=== PATIENT | male | born 1940 | race Caucasian/White ===

== ENCOUNTER → 2018-05-22 | Outpatient (CLI) | payer OTHER | END | disposition home or self-care (01) | LOC: OIH 10:25 | PROVIDERS: ATTEND Family Medicine | DX: M47.896 Other spondylosis, lumbar region (principal); M48.061 Spinal stenosis, lumbar region without neurogenic claudication; I70.0 Atherosclerosis of aorta | CPT/HCPCS: 72100 ==

== ENCOUNTER → 2018-07-13 | Outpatient (CLI) | payer OTHER | END | disposition home or self-care (01) | LOC: RAH 14:30 | PROVIDERS: ATTEND Family Medicine | DX: M47.27 Other spondylosis with radiculopathy, lumbosacral region (principal); M48.061 Spinal stenosis, lumbar region without neurogenic claudication; M51.16 Intervertebral disc disorders with radiculopathy, lumbar region | CPT/HCPCS: 72148 ==

== ENCOUNTER → 2021-12-24 | Outpatient (CLI) | payer OTHER ==
[2021-12-24 12:56] LABS: THYROID STIMULATING HORMONE 1.49 uIU/mL (0.36-3.74)
[2021-12-24 13:34] LABS: T4 (THYROXINE) 8.8 ug/dL (4.7-13.3)
== END | disposition home or self-care (01) ==
LOC: LAB 09:24
PROVIDERS: ATTEND Internal Medicine Cardiovascular Disease
DX: I25.10 Atherosclerotic heart disease of native coronary artery without angina pectoris (principal); I10 Essential (primary) hypertension; Z79.899 Other long term (current) drug therapy
CPT/HCPCS: 36415; 82533; 82607; 82746; 84436; 84443; 86592

== ENCOUNTER → 2023-04-17 | Outpatient (CLI) | payer OTHER ==
[~2023-04-17] MED LIST: REGADENOSON 0.4 MG/5 ML PF SYG IVP ONE
== END | disposition home or self-care (01) ==
LOC: SHCH 08:39
PROVIDERS: ATTEND Internal Medicine Cardiovascular Disease
DX: I25.10 Atherosclerotic heart disease of native coronary artery without angina pectoris (principal)
CPT/HCPCS: 78452; 96374; 93017; J2785; A9500 ×2

== ENCOUNTER 2023-05-30 08:03 | Day surgery (SDC) | payer OTHER ==
[2023-05-26 10:24] VITALS: BP 153/84; PULSE 65; RESP 16
[2023-05-26 10:48] LABS: BASOPHILS # (AUTO) 0.04 K/uL (0.00-0.20); BASOPHILS % (AUTO) 0.4 % (0.0-5.0); EOSINOPHILS # (AUTO) 0.14 K/uL (0.00-0.70); EOSINOPHILS % (AUTO) 1.5 % (0.0-8.0); HEMATOCRIT 46.8 % (42-54); IMMATURE GRANULOCYTE ABSOLUTE 0.02 K/uL (0-1); LYMPHOCYTES # (AUTO) 3.1 K/uL (1.0-4.8); LYMPHOCYTES % (AUTO) 33.7 % (21.0-51.0); MEAN CORPUSCULAR HEMOGLOBIN 32.6 pg (27.0-33.0); MEAN CORPUSCULAR VOLUME 95.9 fL (79-99); MONOCYTES # (AUTO) 0.7 K/uL (0.1-1.0); NEUTROPHILS # (AUTO) 5.1 K/uL (1.8-7.7); NEUTROPHILS % (AUTO) 56.2 % (40.0-77.0); PLATELET COUNT (AUTO) 173 K/uL (130-400); RED BLOOD CELL COUNT(AUTO) 4.88 MIL/uL (4.50-6.20); RED CELL DISTRIBUTION WIDTH 13.5 % (11.0-15.5); WHITE BLOOD COUNT (AUTO) 9.1 K/uL (4.8-10.8)
[2023-05-26 10:52] LABS: CREATININE 0.9 mg/dL (0.5-1.5); POTASSIUM 4.2 mmol/L (3.5-5.1)
[2023-05-26 10:53] LABS: INR 0.98 (0.85-1.15); PROTHROMBIN TIME 11.4 SEC (9.6-11.6)
[2023-05-26 10:55] LABS: PARTIAL THROMBOPLASTIN TIME 32.2 SEC (26.3-35.5)
[2023-05-26 10:59] LABS: APPEARANCE,URINE CLEAR (CLEAR); BILIRUBIN,URINE NEGATIVE (NEGATIVE); COLOR,URINE YELLOW (YELLOW); GLUCOSE, URINE (UA) NEGATIVE (NEGATIVE); KETONES,URINE NEGATIVE (NEGATIVE); LEUKOCYTE ESTERASE ,URINE NEGATIVE Leu/uL (NEGATIVE); NITRATE,URINE NEGATIVE (NEGATIVE); OCCULT BLOOD,URINE NEGATIVE (NEGATIVE); PROTEIN,URINE NEGATIVE (NEGATIVE); UROBILINOGEN,URINE 0.2 mg/dL (0.2-1.0)
[2023-05-26 11:08] LABS: ADD UA MICROSCOPIC NO
[2023-05-26 11:22] LABS: B-TYPE NATRIURETIC PEPTIDE 49 pg/mL (0-100)
[~2023-05-30] VITALS: Ht 182.9 cm; Wt 78.6 kg
[2023-05-30] VITALS (10 sets, daily range): BP systolic 102–135; BP diastolic 46–76; PULSE 58–76; RESP 14–18
[~2023-05-30 08:03] MED LIST changes: +AEC81 PO; +ATOR10 PO; +CLOP75TA32 PO; +NITR0.4T50 SL; +OMEP20CA12 PO; -REGADENOSON 0.4 MG/5 ML PF SYG IVP ONE; +VITAMIN B12 PO; +ZINC50TA15 PO
[2023-05-30] MEDS ORDERED: 0.9%NACL 1000ML 1,000 ML IV ONE (08:15)
[2023-05-30] MEDS ORDERED: LIDOCAINE HCL 400MG/20ML VIAL ONE (09:10)
[2023-05-30] MEDS ORDERED: IOHEXOL 350 MG/ML 100ML INFUS..BTL IV ONE (09:11)
[2023-05-30] MEDS ORDERED: IOHEXOL-350 50ML VIAL IV ONE (09:11)
[2023-05-30] MEDS ORDERED: FENTANYL CITRATE PF 50 MCG/1 ML 2ML VIAL ONE (09:42)
[2023-05-30] MEDS ORDERED: MIDAZOLAM HCL 1 MG/ML 2ML VIAL ONE (09:42)
[2023-05-30] MEDS ORDERED: IOHEXOL-350 75 ML VIAL IV ONE (09:43)
[2023-05-30] MEDS ORDERED: LABETALOL 20MG SYG IV ONE (10:33)
[2023-05-30] MEDS ORDERED: HEPARIN 10,000 UNIT/10ML (1,000 UNIT/ML) VIAL ONE (10:44)
[2023-05-30] MEDS ORDERED: 0.9%NACL 1000ML 1,000 ML IV SCH (11:30)
[2023-05-30 12:14] LABS: CHOLESTEROL 103 mg/dL (<200); HDL CHOLESTEROL 52 mg/dL (29-71); LDL DIRECT 50 mg/dL (0-99); TRIGLYCERIDES 38 mg/dL (30-200)
[2023-05-30] MEDS ORDERED: ACETAMINOPHEN 325 MG TAB ONE (14:31)
== END 2023-05-30 15:35 | disposition home or self-care (01) ==
LOC: DAH 08:03
PROVIDERS: ATTEND Internal Medicine Cardiovascular Disease
DX: I25.118 Atherosclerotic heart disease of native coronary artery with other forms of angina pectoris (principal); T82.855A Stenosis of coronary artery stent, initial encounter; I10 Essential (primary) hypertension; K21.9 Gastro-esophageal reflux disease without esophagitis; E78.5 Hyperlipidemia, unspecified; Z79.01 Long term (current) use of anticoagulants; Z79.899 Other long term (current) drug therapy; Z95.5 Presence of coronary angioplasty implant and graft; Z82.49 Family history of ischemic heart disease and other diseases of the circulatory system; Z72.89 Other problems related to lifestyle; Z79.82 Long term (current) use of aspirin; Y83.8 Other surgical procedures as the cause of abnormal reaction of the patient, or of later complication, without mention of misadventure at the time of the procedure; Y92.89 Other specified places as the place of occurrence of the external cause
CPT/HCPCS: 80048; 83880; 85025; 85610; 85730; 81003; 36415 ×2; 71045; 93005; 93458; 80061; 93571; C1887; C1894 ×2; C1760; C1769; J3010; J3490; J7030; J1644 ×2; J2250; Q9967 ×3; A4215; A4222; A4221; A4663; A4216; A4606; Q9965; A4223 ×3; 96360; 96361; 99156; 99157

== ENCOUNTER 2024-01-15 21:08 | Emergency (ER) | payer OTHER ==
[~2024-01-15] VITALS: Ht 182.9 cm; Wt 77.1 kg
[2024-01-15] MEDS ORDERED: AMOX1TAB16 PO (21:29)
[2024-01-15] MEDS: AMOX/CLAV 875/125MG TAB PO ONE (21:42)
[2024-01-15] MEDS: teTANUS/diphthERIA TOXOID [ADULT] 0.5 ML VIAL IM ONE (21:46)
[2024-01-15 22:09] VITALS: BP 136/74; PULSE 86; RESP 18; TEMP 98.4; O2SAT 96
== END 2024-01-15 22:13 | disposition home or self-care (01) ==
LOC: EDH 21:08
DX: M79.672 Pain in left foot (principal); G20.A1 Parkinson's disease without dyskinesia, without mention of fluctuations; Z23 Encounter for immunization; Z79.899 Other long term (current) drug therapy
CPT/HCPCS: 90471; 90714

== ENCOUNTER → 2024-01-29 | Outpatient (CLI) | payer OTHER ==
[~2024-01-29] MED LIST changes: +AMOX1TAB16 PO
== END | disposition home or self-care (01) ==
LOC: RAH 07:59
PROVIDERS: ATTEND Internal Medicine
DX: I82.4Z3 Acute embolism and thrombosis of unspecified deep veins of distal lower extremity, bilateral (principal); R29.898 Other symptoms and signs involving the musculoskeletal system
CPT/HCPCS: 93925

== ENCOUNTER → 2024-10-10 | Outpatient (CLI) | payer OTHER ==
--- NOTE | 2024-10-10 16:01 | HMCIMG ---
US THYROID/NECK HISTORY: Hoarseness COMPARISON: None TECHNIQUE: Thyroid ultrasound study was performed. FINDINGS: Right thyroid lobe measures 3 x 1.5 x 0.9 cm. Left thyroid lobe measures 3.8 x 1.8 x 1.3 cm. No discrete thyroid nodule is seen. IMPRESSION: 1. No discrete thyroid nodule is seen.
== END | disposition home or self-care (01) ==
LOC: RAH 14:49
PROVIDERS: ATTEND Internal Medicine
DX: R49.0 Dysphonia (principal)
CPT/HCPCS: 76536